=== PATIENT | male | born 1975 | race Caucasian/White ===

== ENCOUNTER 2016-10-06 10:42 | Inpatient (IN) | payer OTHER ==
[~2016-10-06] VITALS: Ht 177.8 cm; Wt 68.6 kg
[2016-10-06] VITALS (7 sets, daily range): BP systolic 119–164; BP diastolic 74–93; PULSE 70–85; RESP 14–22; O2SAT 97–100
--- NOTE | 2016-10-06 11:10 | ED.REPORT ---
HPI-Abd Pain M 40 and Over Date of Service Oct 06, 2016 ED Provider: History of Present Illness: 41-year-old male here for upper abdominal pain since 0 700 this morning. He woke up with this abdominal pain and has been constant since then on his right upper mid and left upper abdomen. He has no history of prior abdominal pain like this he usually gets lower abdominal pain and thinks he may have IBS but this is different than his chronic pain. He had pizza and shrimp for dinner last night and 4 beers. He drinks 4 beers almost daily. No recreational drug use although he does admit to taking his 's Vicodin periodically. Last was a few days ago. He denies nausea although he did not make himself vomit to help him feel better. There was no noted blood in his emesis. He took some fish oil to have a bowel movement this morning and he had a normal consistency bowel movement with no blood noted. He denies any urinary symptoms, he is passing gas. Denies any new sexual partners or penile discharge. The pain is severe and constant. Nursing Notes Stated Complaint: ABD PAIN Chief Complaint: Male Abdominal Pain Nursing Notes Reviewed: Yes Allergies: Coded Allergies: No Known Allergies (Unverified , 12/10/12) Scheduled PRN Ibuprofen (Ibuprofen) 200 Mg Capsule 200-600 MG PO QID PRN PRN For Pain Miscellaneous Medications Digestive Enzymes Combo No.7 (Superior Digestive Enzyme) 1 Each Capsule 1 EACH PO General Time Seen by MD: 11:04 Chief Complaint Abdominal pain Hx Obtained From: Patient Arrived By: Walk-in Sudden in Onset?: Yes Onset Occurred: 1 - 4 hours ago Context of Onset: Sleeping Symptom Duration: Constant Progression since Onset: Unchanged, Constant Location: : Abdomen upper: Epigastric: LUQ: RUQ Radiation: : Does not radiate Severity: Current: Severe Severity: Maximum: Severe Recent Healthcare: No recent doctor visit Similar Sx Previous: No Risk Factors Risk Notes: nonsmoker, takes unspecified amt of vicodin regularly Past Medical History Past Medical History multiple GI issues. IBS with intrmittent diarrhea and constipation Past Surgical History EGD/colonoscopy 2014 Smoking History Former Smoker Social History Alcohol Use: 3-5 per day Review of Systems Basic Review of Systems Eyes: Vision NL, No discharge ENT: Hearing NL, No pain, No nasal congestion, No pharyngeal pain Skin: No bruising, No rash, No itch Allergy / Immune: No allergy Neurologic: NL mental status, No weakness, No numbness Constitutional: Denies: Chills, Fatigue, Fever Respiratory: Denies: Dyspnea on exertion, Non-productive cough Cardiovascular: Denies: Chest pain, Edema GI: Reports: Abdominal pain, Denies: Bloody/tarry stool, Constipation, Diarrhea, Nausea, Vomiting Male: Denies Dysuria, Denies Penile discharge Musculoskeletal: Denies: Back pain Complete sys rev & neg: except as marked. Physical Exam Initial Vital Signs Vital Signs (First) Date Time Temp Pulse Resp B/P Pulse Ox O2 Delivery O2 Flow Rate FiO2 10/06/16 10:46 35.4 85 22 152/93 100 Room Air Initial VS: Reviewed, Vital signs normal Head / Eyes: Atraumatic, Normocephalic, PERRL ENT: Mucous membranes moist, Conjunctiva normal, No scleral icterus Neck: Supple, Non-tender, Full range of motion Extremities: Vascular intact, Neuro intact, No swelling, No tenderness Skin: Warm, Dry, No cyanosis Neurologic: Alert, Oriented, Nonfocal Psychiatric: Mood/affect normal, Behavior normal, Normal thought content General/Constitutional: Awake, Alert minor distress, slightly slurring words, guarding abd Respiratory / Chest: Breath sounds NL, Breath sounds = bilat, No respiratory distress, No rales, No rhonchi, No wheezing Cardiovascular: Heart rate NL, Regular rhythm, Heart sounds NL, Peripheral circulation NL Abdomen: Soft, McBurney's non-tender, BS normoactive, No distention, No hernia , No palpable mass, No pulsatile mass Tenderness/Guarding/Rebound: Positive: Guarding involuntary, Rebound diffuse, Tender LUQ... (Severe), Tender RUQ... (Severe), Tender epigastric Head / Eyes: Normocephalic, PERRL Skin: Color NL, Warm, Dry, Turgor NL Interpretation & Diagnostics Interpretation & Diagnostics: urine tox: benzos and cocaine Lab Results Interpretation Result Diagram: 10/06/16 1110 10/06/16 1110 Test 10/06/16 11:10 10/06/16 13:54 White Blood Count 10.7th/mm3 (3.8-10.1) Red Blood Count 5.60mil/mm3 (4.40-5.80) Hemoglobin 16.6g/dL (13.8-17.2) Hematocrit 46.5% (41.0-50.0) Mean Corpuscular Volume 83.0fL (81-100) Mean Corpuscular Hemoglobin 29.6pg (27.0-35.0) Mean Corpuscular Hemoglobin Concent 35.7% (32.0-37.0) Red Cell Distribution Width 13.1% (12.3-15.4) Platelet Count 316bil/L (150-400) Neutrophils (%) (Auto) 85.0% (40-74) Lymphocytes (%) (Auto) 6.2% (14-46) Monocytes (%) (Auto) 7.7% (4-12) Eosinophils (%) (Auto) 0.8% (0-5) Basophils (%) (Auto) 0.2% (0-3) Sodium Level 134mEq/L (134-144) Potassium Level 3.7mEq/L (3.5-5.2) Chloride Level 93mEq/L (97-108) Carbon Dioxide Level 19mmol/L (18-29) Blood Urea Nitrogen 14mg/dL (6-24) Creatinine 0.64mg/dL (0.76-1.27) Estimat Glomerular Filtration Rate 145mL/min (>59) Glucose Level 153mg/dL (60-99) Calcium Level 10.4mg/dL (8.5-10.1) Magnesium Level 1.9mg/dL (1.6-2.6) Total Bilirubin 1.3mg/dL (0.0-1.2) Aspartate Amino Transf (AST/SGOT) 38U/L (0-50) Alanine Aminotransferase (ALT/SGPT) 31U/L (0-44) Alkaline Phosphatase 93U/L (25-150) Troponin T 0.010ug/L (0.0-0.011) Total Protein 8.0g/dL (6.4-8.4) Albumin 4.8g/dL (3.4-5.0) Lipase 90U/L (13-60) Hold [place] Top Tube Received (Received) Hold Urine Received (Received) X-Ray Abdominal Interpretation PROCEDURE: X-RAY ACUTE ABDOMINAL SERIES ([id number]) INDICATIONS: abd pain TECHNIQUE: One view chest and two views of the abdomen were acquired. COMPARISON: None. FINDINGS: Surgical changes and devices: None. Chest: Lungs are clear. Heart size is normal. No pleural effusions. No pneumoperitoneum. Abdomen: Bowel gas pattern is abnormal at the midabdomen and left upper quadrant where scattered air-fluid levels can be in within small bowel loops. No subdiaphragmatic free air. No suspicious calcifications. Visualized solid organ contours appear normal. Bones: No suspicious bony lesions. IMPRESSION: Scattered small bowel gas-filled and mildly dilated loops at the midabdomen and left upper quadrant, with air-fluid levels. Focal ileus can produce such an appearance, but also early small bowel obstruction is a common cause for this appearance. Followup by CT scanning may be warranted at this time. Re-Eval/Medical Decision Med Decision/Clinical Course Patient states that he took 2 of his 's Vicodin over the past month. He does not do this chronically.. 1330- report to dr arraega, to assume care Care assumed, patient examined, chart reviewed On admitting the patient he splashed with a temperature to 38.4 so significant abdominal pain despite IV narcotics. He has moderate bowel tones is diffusely tender with mild peritoneal signs (significant tenderness with moving the bed around). CT scan is reviewed and there is no suggestion of intraperitoneal abscess or appendicitis. No significant colon inflammation or findings. Possibility of partial small bowel obstruction is entertained. Patient did have 3 bowel movements after taking a bowel stimulant this morning. Etiology for the severe abdominal pain and slightly elevated white count. No obvious source of infection at this point. Temperature spiking at this point. Lactate and blood cultures will be added to labs already obtained. We will continue with IV hydration Tylenol for the fever and additional narcotic pain medication for pain control. Because of the uncertainty in diagnosis at this point as well as the severity of pain we will admit for observation. They do not have a source for infection will not start antibiotics at this time. His lipase is slightly elevated however the CT scan does not suggest significant pancreatic inflammation. I do not suspect that this is severe pancreatitis and certainly the CT scan does not support his pancreas as the source of the severity of pain and noting on clinical exam Time of Eval: 14:10 )( Re-Eval Abdomen: Tenderness, Guarding, Bowel sounds Patient Status: Condition unchanged Re-Evaluation/Progress Note: uncertain diagnosis in setting of severe abdominal pain. Admit for further evaluation, observation and pain control. Consultation : Consulted With: Hospitalist Note: patient admitted to Dr Mandujano Discharge & Departure Primary Impression: Generalized abdominal pain Additional Impressions: Pancreatitis Ileus Disposition: ADMITTED TO HOSPITAL Vital Signs - All Vital Signs Date Time Temp Pulse Resp B/P Pulse Ox O2 Delivery O2 Flow Rate FiO2 10/06/16 14:52 38.1 70 14 164/84 100 Room Air 10/06/16 10:46 35.4 85 22 152/93 100 Room Air )( All Prior VS Reviewed: Yes Condition: Stable Referrals: Varghese Goldberg MD (PCP) copies to: Varghese Goldberg MD, Linnea K ARNP Oct 06, 2016 11:10 Natalya Arreaga MD Oct 06, 2016 14:42
[2016-10-06] MEDS ORDERED: 0.9% Sodium Chloride 1,000 ML IV ONE ×3 (11:12→13:47)
[2016-10-06] MEDS ORDERED: Pantoprazole 4 mg/mL 10 mL Inj IVPUSH ONE ×2 (11:15→13:50)
[2016-10-06] MEDS ORDERED: Ondansetron 2 mg/mL 2 mL Inj IVPUSH ONE ×2 (11:15→13:05)
[2016-10-06] MEDS ORDERED: LidocaineVisc 2%:Antacid 1:1 10 mL Syringe PO ONE (11:15)
[2016-10-06 11:28] LABS: BASOPHILS % (AUTO) 0.2 % (0-3); EOSINOPHILS % (AUTO) 0.8 % (0-5); MONOCYTES % (AUTO) 7.7 % (4-12); Mean Corpuscular Hemoglobin 29.6 pg (27.0-35.0); Platelet Count 316 bil/L (150-400)
[2016-10-06 11:41] LABS: TROPONIN T 0.01 ug/L (0.0-0.011)
[2016-10-06 11:53] LABS: Magnesium 1.9 mg/dL (1.6-2.6)
--- NOTE | 2016-10-06 11:54 | DRSVH ---
PROCEDURE: X-RAY ACUTE ABDOMINAL SERIES ([id number]) INDICATIONS: abd pain TECHNIQUE: One view chest and two views of the abdomen were acquired. COMPARISON: None. FINDINGS: Surgical changes and devices: None. Chest: Lungs are clear. Heart size is normal. No pleural effusions. No pneumoperitoneum. Abdomen: Bowel gas pattern is abnormal at the midabdomen and left upper quadrant where scattered air -fluid levels can be in within small bowel loops. No subdiaphragmatic free air. No suspicious calci fications. Visualized solid organ contours appear normal. Bones: No suspicious bony lesions. IMPRESSION: Scattered small bowel gas-filled and mildly dilated loops at the midabdomen and left upp er quadrant, with air-fluid levels. Focal ileus can produce such an appearance, but also early small bowel obstruction is a common cause for this appearance. Followup by CT scanning may be warranted a t this time. Dictated by: Velasquez Ferrera M.D. on 10/06/2016 at 11:51 Approved by: Velasquez Ferrera M.D. on 10/06/2016 at 11:52
[2016-10-06] MEDS ORDERED: HYDROmorphone 1 mg/mL Inj IVPUSH ONE ×3 (12:20→13:50)
--- NOTE | 2016-10-06 13:01 | DRSVH ---
PROCEDURE: CT ABDOMEN AND PELVIS WITH CONTRAST ([id number]) INDICATIONS: epigastric pain TECHNIQUE: After the administration of intravenous contrast, 5 mm thick sections acquired from the diaphragm to the symphysis. 5 mm coronal and sagittal reformats were acquired. For radiation dose reduction, the following was used: automated exposure control, adjustment of mA and/or kV according to patient siz e. COMPARISON: [facility], CR, XR ABD ACUTE SERIES 3VW, 10/06/2016, 11:27. FINDINGS: Image quality: Excellent. ABDOMEN: Lung bases: Lung bases are clear. Heart size is normal. Solid organs: Liver and spleen are normal in size and enhancement. There is a 1.5 x 1.8 cm peripher ally enhancing centrally lucent structure within the left lateral hepatic segment (image 26 of series 2) most consistent with hemangioma. Gallbladder appears normal. Biliary system is non dilated. Pa ncreas enhances normally. No adrenal nodules. Kidneys demonstrate normal size and enhancement, with out hydronephrosis. Peritoneum and bowel: Colonic bowel loops demonstrate normal wall thickness and caliber. There is a bnormal small bowel dilatation by fluid, over the upper and mid abdomen. At the right lower quadrant there is a transition between small bowel dilatation and relative collapse, which is not demarcated by a focus of mass intussusception or volvulus. No free fluid or air. Nodes and vessels: No retroperitoneal or mesenteric adenopathy by size criteria. Aorta and inferior vena cava are normal in size. Miscellaneous: No ventral hernias. PELVIS: Genitourinary: Bladder wall thickness is normal. Miscellaneous: No inguinal hernias or adenopathy. Bones: No suspicious bony lesions. No vertebral body compression fractures. IMPRESSION: A partial or early complete small bowel obstruction centered at the right lower quadrant appears present, etiology uncertain. Normal appearing colon, no mass or adenopathy seen. The dista l small bowel and colon appear relatively collapsed. Presumed hemangioma measuring up to 1.8 cm in dimension left lateral hepatic segment. If followup ul trasound is anticipated targeted sonographic assessment of this structure is recommended to further e stablish diagnosis of presumed hemangioma. Dictated by: Velasquez Ferrera M.D. on 10/06/2016 at 12:56 Approved by: Velasquez Ferrera M.D. on 10/06/2016 at 12:59
[2016-10-06] MEDS ORDERED: Ondansetron 2 mg/mL 2 mL Inj IVPUSH PRN (13:50)
--- NOTE | 2016-10-06 13:50 | DRSVH ---
PROCEDURE: US ABDOMEN ([id number]) INDICATIONS: epigstric pain TECHNIQUE: Real-time scanning was performed of the abdominal and retroperitoneal organs, with image documentatio n. COMPARISON: [facility], CT, CT ABD PELVIS W CON, 10/06/2016, 12:31. FINDINGS: Liver: Liver is normal in size and homogeneous in echotexture. Gallbladder: The gallbladder appears normal Biliary ducts: Intrahepatic bile ducts are non-dilated. Extrahepatic bile duct caliber measures 5-6 mm. Normal is 6-7 mm or less in diameter, or 10 mm or less post-cholecystectomy. Pancreas: Visualized portions of the pancreas are sonographically normal. Spleen: Spleen is normal in size and homogeneous in echotexture. Kidneys: Kidneys are normal in size and echotexture. Right kidney measures 13.0 cm long; left kidne y measures 12.7 cm long. No hydronephrosis or nephrolithiasis. No solid masses. Aorta: Visualized aorta is normal in caliber at less than 3 cm. Iliacs: Proximal common iliac arteries are normal in caliber at less than 2.5 cm. IVC: Intrahepatic inferior vena cava is patent. Miscellaneous: No free abdominal fluid. Multiple fluid-filled small bowel loops are present within the abdomen as seen also during CT scanning. IMPRESSION: Multiple fluid-filled small bowel loops within the abdomen, relatively hypo-motile. No free fluid was identified throughout the peritoneal space. The ultrasound was performed at approximately 12:00 10/06/[address] scan was performed jah roximately [address] scan has identified what likely is a hemangioma within the left lateral hepatic segment inferiorly, measuring up to approximately 2.2 cm, but not visualized by this ultrasound. If possible a brief supplemental repeat scan of that particular area of the liver added to this study would be helpful in determining if in fact a hemangioma is present. If that cannot be done at this time I would recommend obtaining a followup dedicated single organ ultrasound subsequen tly targeted to the left lateral hepatic segment to address this issue. Findings discussed with the ordering healthcare provider. Dictated by: Velasquez Ferrera M.D. on 10/06/2016 at 13:37 Approved by: Velasquez Ferrera M.D. on 10/06/2016 at 13:48
[2016-10-06] MEDS: HYDROmorphone 1 mg/mL Inj IVPUSH PRN ×4 (14:00→17:58)
[2016-10-06] MEDS ORDERED: DIGE1CAP PO (14:23)
[2016-10-06] MEDS ORDERED: IBUP200C PO (14:23)
[2016-10-06] MEDS ORDERED: D5 0.45% NaCl + KCl 20 mEq/L 1,000 ML IV SCH (14:53)
[2016-10-06] MEDS ORDERED: HYDROcodone-APAP 5-325 mg Tablet PO PRN (14:55)
[2016-10-06] MEDS ORDERED: Alum-Mag Hydrox-Simeth 30 mL Suspension PO PRN (14:55)
[2016-10-06] MEDS ORDERED: Polyethylene Glycol (PEG) 17 Gm Powder PO PRN (14:55)
--- NOTE | 2016-10-06 17:29 | NUR ---
Admission note Report received from ED RN. Patient arrived to room 3025 via stretcher. Pt oriented to room, use of call light. Policies and procedure explained. Pt verbalized understanding. Pt oriented to person, place and time. Vitals and assessment charted. Ongoing care.
[2016-10-06] MEDS: D5 0.9% NaCl + KCl 20 mEq/L 1,000 ML IV SCH (17:30)
--- NOTE | 2016-10-06 17:59 | PCM.HPMED ---
Subjective Date of Service Oct 06, 2016 Primary Provider: Admitting Physician: Michael Doss MD Primary Care Physician: Varghese Goldberg MD Attending Physician: Michael Doss MD Chief Complaint: Epigastric pain, nausea and vomiting History of Present Illness: 41-year-old male with a history of what he believes is irritable bowel syndrome has had issues with his gut but is eating all right and had bowel movements even this morning. He states he woke up around 3 in the morning to urinate and he still felt fine and then at 7 AM when he woke up he was having terrible epigastric pain. He had 3 bowel movements that seemed relatively normal for him at that time still did not relieve his symptoms. He came to the emergency room around 11 AM due to severe epigastric pain and nausea and vomiting that was ongoing. Review of Systems: Gen.: No fevers chills weight loss weight gain Eyes: no visual disturbances or blurring vision HEENT: No nose/throat drainage, no pain in ears or throat, no hearing loss Lymph: No lymph nodes noted Cardiac: No chest pain, orthopnea, PND, palpitations , pedal edema or dyspnea on exertion Pulmonary: no cough, wheezing or bringing up of sputum GI: blood or black in the stool epigastric pain, nausea and vomiting as described above : no dysuria hematuria urinary frequency or decrease in urine output Musculoskeletal: Joint swelling no joint pain no new muscle aches or back pain Neuro: No syncope, seizures no loss of consciousness no new focal weakness, numbness or tingling Psychiatric: New new anxiety insomnia or depression Endocrine: No new heat or cold intolerances polyuria or polydipsia Hematology: No lymphadenopathy or easy bleeding or bruising noted skin: No new rashes, stasis dermatitis Allergies Coded Allergies: No Known Allergies (Unverified , 12/10/12) Home Medications None PMH Patient has had EGD and colonoscopy by Dr. 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 No early cancer, diabetes, Crohn's disease or GI issues Social History Hx Alcohol Use: Yes Alcoholic Drinks Per Day: 2-6 beers a day approx 5-6 days a week Hx Substance Use: No Hx Tobacco Use: No Smoking Status: Former Smoker Exam Vital Signs Vital Sign - Last Date Time Temp Pulse Resp B/P Pulse Ox O2 Delivery O2 Flow Rate FiO2 10/06/16 16:47 36.9 73 18 120/74 97 Room Air Exam Gen.- A+ O 3 no apparent distress. Thin muscular male laying in bed just looks miserable and sick Eyes- open conjunctiva clear, pupils equal nonicteric Mouth- oral mucosa moist, no exudate ENT- ears normal, nose normal Neck- supple/trach midline CVS- RRR no murmur or gallop Lungs CTA GI- no bowel sounds, slightly distended, epigastric tenderness, no rebound or guarding Musc- moving 4 no obvious deformity Neuro- cranial nerves II through XII intact to gross examination, nonfocal Skin- warm and dry, no rashes/lesions/wounds noted Psych- pleasant and appropriate, Lab and Diagnostics Result Diagram: 10/06/16 1110 10/06/16 1110 X-Rays, CTs and MRIs US ABDOMEN : Velasquez Ferrera M.D. on 10/06/2016 at 13:48 IMPRESSION: Multiple fluid-filled small bowel loops within the abdomen, relatively hypo-motile. No free fluid was identified throughout the peritoneal space. The ultrasound was performed at approximately 12:00 10/06/[address] scan was performed approximately [address] scan has identified what likely is a hemangioma within the left lateral hepatic segment inferiorly, measuring up to approximately 2.2 cm, but not visualized by this ultrasound. If possible a brief supplemental repeat scan of that particular area of the liver added to this study would be helpful in determining if in fact a hemangioma is present. If that cannot be done at this time I would recommend obtaining a followup dedicated single organ ultrasound subsequently targeted to the left lateral hepatic segment to address this issue. Findings discussed with the ordering healthcare provider. Approved by: Velasquez Ferrera M.D. on 10/06/2016 at 13:48 CT ABDOMEN AND PELVIS WITH CONTRAST : Velasquez Ferrera M.D. on 10/06/2016 at 12: 59 personal/concurrently reviewed by myself Selam 10/06 IMPRESSION: A partial or early complete small bowel obstruction centered at the right lower quadrant appears present, etiology uncertain. Normal appearing colon, no mass or adenopathy seen. The distal small bowel and colon appear relatively collapsed. Approved by: Velasquez Ferrera M.D. on 10/06/2016 at 12:59 X-RAY ACUTE ABDOMINAL : Velasquez Ferrera M.D. on 10/06/2016 at 11:51 IMPRESSION: Scattered small bowel gas-filled and mildly dilated loops at the midabdomen and left upper quadrant, with air-fluid levels. Focal ileus can produce such an appearance, but also early small bowel obstruction is a common cause for this appearance. Followup by CT scanning may be warranted at this time. Dictated by: Velasquez Ferrera M.D. on 10/06/2016 at 11:51 12-lead ECG Sinus rhythm with a rate of 65, QTC 454 ms personally/concurrently reviewed by myself Selam 10/06 Assessment & Plan 41-year-old male with abrupt onset abdominal pain admitted 10/06 #Abdominal pain/nausea/vomiting-differential includes ileus and/or pancreatitis , patient has a history that sounds like it could be IBS versus undiagnosed Crohn's disease -Nothing by mouth, IV fluids -Treating with morphine/Zofran -If nausea and vomiting recurs I would place an NG tube for now we will not -If patient does not improve symptomatically we will consider GI consult in the next day or 2. #Prophylaxis- DVT with SCDs and enoxaparin, GI with pantoprazole IV #Disposition- patient is from home, he is a full code Michael Doss MD Oct 06, 2016 17:59
--- NOTE | 2016-10-06 18:44 | NUR ---
Pain Pt c/o of severe pain in upper abdomen, given PRN Dilaudid x 2, max dose, with no relief. 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 Pt denies N/V at this time, resting in room with call light within reach, bed low and locked, intentional rounding.
[2016-10-06] MEDS: HYDROmorphone PCA 0.2 mg/mL 30 mL Inj IV PRN (19:38)
[2016-10-06] MEDS: Famotidine Inj 20 MG in IV Premix 1 EACH IV SCH (21:28)
[2016-10-07] VITALS (11 sets, daily range): BP systolic 118–126; BP diastolic 79–84; PULSE 59–66; RESP 17–20; O2SAT 97–98
[2016-10-07] MEDS: D5 0.9% NaCl + KCl 20 mEq/L 1,000 ML IV SCH ×2 (03:41→14:05)
--- NOTE | 2016-10-07 06:46 | NUR ---
Pain: MOVIE EDITOR set up at the beginning of the shift. Pt reported abdominal pain with activity at about a 8/10, at rest 5/10. Only one bolus from the MOVIE EDITOR administered. Pt requested being woke about every 1 1/2-2 hours through the night to keep up on pain. Able to sleep between care. Taking only ice, no nausea.
[2016-10-07] MEDS: Famotidine Inj 20 MG in IV Premix 1 EACH IV SCH ×2 (08:58→21:05)
[2016-10-07] MEDS: HYDROmorphone PCA 0.2 mg/mL 30 mL Inj IV PRN (09:04)
[2016-10-07] MEDS: LidocaineVisc 2%:Antacid 1:1 10 mL Syringe PO SCH ×4 (10:39→21:06)
--- NOTE | 2016-10-07 16:06 | NUR ---
Social Work-screening: Data:EMR Reviewed. Pt is a 41 y/o male who was admitted on 10/06/16 for abdominal pain per H&P. Pt's insurance is [employer] and PCP is Varghese Goldberg MD. EMR Reviewed. Pt's readmission score is 0. SW met with pt to discuss discharge planning, SW role explained. Pt is alert and oriented x3. pt reside at home with and children where he remains independent with ADLs. Pt drives and does not use any DME. SW discussed DPOA/ advanced directive, pt states he has not completed this, SW provided pt with a copy. Per H&P, pt drinks 2-6 beers a day, SW to await MD orders for CD assessment, if indicated. Pt's family to provide transport home when medically stable. SW provided phone number and plan on white board in room. SW will continue to follow. Assessment:Pt who is independent at baseline. Plan:Pt to discharge home when medically stable via POV. SW to await MD orders for CD assessment if indicated. No other SW needs identified. SW will continue to follow if needs arise. OMAR Underwood
[2016-10-07] MEDS ORDERED: LidocaineVisc 2%:Antacid 1:1 10 mL Syringe PO SCH (17:35)
--- NOTE | 2016-10-07 17:38 | PCM.PNMED ---
Subjective Date of Service Oct 07, 2016 Subjective Pain is better, bowels move. No chest pain, no dyspnea, nausea and vomiting have resolved Exam Vital Signs Vital Sign - Last Date Time Temp Pulse Resp B/P Pulse Ox O2 Delivery O2 Flow Rate FiO2 10/07/16 16:58 18 98 10/07/16 13:28 36.5 66 118/80 Room Air Intake and Output 10/06/16 10/06/16 10/07/16 Cumulative From/Thru 15:00 23:00 07:00 10/06/16 10:46 - 10/07/16 06:40 Intake Total 3000 ml 0 ml 1343 ml 4343 ml Output Total 1250 ml 1250 ml Balance 3000 ml -1250 ml 1343 ml 3093 ml Intake Oral 0 ml 0 ml IV Total 3000 ml 1343 ml 4343 ml Output Urine Total 1250 ml 1250 ml # Voids 2 2 Exam Gen.- A+ O 3 no apparent distress. Thin muscular male moving about and doing pretty good Eyes- open conjunctiva clear, pupils equal nonicteric ENT- ears normal, nose normal Neck- supple/trach midline CVS- RRR no murmur or gallop Lungs CTA GI- NABS/only mildly tender no rebound or guarding markedly better than 10/06 Musc- moving 4 no obvious deformity Neuro- cranial nerves II through XII intact to gross examination, nonfocal Skin- warm and dry, no rashes/lesions/wounds noted Psych- pleasant and appropriate, Lab and Diagnostics Result Diagram: 10/06/16 1110 10/06/16 1110 X-Rays, CTs and MRIs US ABDOMEN : Velasquez Ferrera M.D. on 10/06/2016 at 13:48 IMPRESSION: Multiple fluid-filled small bowel loops within the abdomen, relatively hypo-motile. No free fluid was identified throughout the peritoneal space. The ultrasound was performed at approximately 12:00 10/06/[address] scan was performed approximately [address] scan has identified what likely is a hemangioma within the left lateral hepatic segment inferiorly, measuring up to approximately 2.2 cm, but not visualized by this ultrasound. If possible a brief supplemental repeat scan of that particular area of the liver added to this study would be helpful in determining if in fact a hemangioma is present. If that cannot be done at this time I would recommend obtaining a followup dedicated single organ ultrasound subsequently targeted to the left lateral hepatic segment to address this issue. Findings discussed with the ordering healthcare provider. Approved by: Velasquez Ferrera M.D. on 10/06/2016 at 13:48 CT ABDOMEN AND PELVIS WITH CONTRAST : Velasquez Ferrera M.D. on 10/06/2016 at 12: 59 personal/concurrently reviewed by myself Selam 10/06 IMPRESSION: A partial or early complete small bowel obstruction centered at the right lower quadrant appears present, etiology uncertain. Normal appearing colon, no mass or adenopathy seen. The distal small bowel and colon appear relatively collapsed. Approved by: Velasquez Ferrera M.D. on 10/06/2016 at 12:59 X-RAY ACUTE ABDOMINAL : Velasquez Ferrera M.D. on 10/06/2016 at 11:51 IMPRESSION: Scattered small bowel gas-filled and mildly dilated loops at the midabdomen and left upper quadrant, with air-fluid levels. Focal ileus can produce such an appearance, but also early small bowel obstruction is a common cause for this appearance. Followup by CT scanning may be warranted at this time. Dictated by: Velasquez Ferrera M.D. 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 hopefully can discharge 10/08. #Abdominal pain/nausea/vomiting-differential includes ileus and/or pancreatitis , patient has a history that sounds like it could be IBS versus undiagnosed Crohn's disease -Nothing by mouth, IV fluids -Treating with morphine/Zofran -If nausea and vomiting recurs I would place an NG tube for now we will not -If patient does not improve symptomatically we will consider GI consult in the next day or 2. #Prophylaxis- DVT with SCDs and enoxaparin, GI with pantoprazole IV #Disposition- patient is from home, he is a full code Michael Doss MD Oct 07, 2016 17:38
--- NOTE | 2016-10-07 18:30 | NUR ---
[employer] ATTENDANT Discontinued Patient transitioned to po pain medications and GI cocktail. Patient reporting pain 4-6/10 this shift, increasing with activity, especially walking or when attempting a bowel movement. Patient reported small amount of liquid stool x 2 this morning with increased pain.
[2016-10-08] MEDS: LidocaineVisc 2%:Antacid 1:1 10 mL Syringe PO SCH ×4 (00:58→12:24)
--- NOTE | 2016-10-08 04:22 | NUR ---
Pain/diet: Pt c/o abdominal pain x1 10/12; medication administered, effective. Pt also receiving scheduled GI cocktail which pt states he feels helps with his discomfort a lot. Pt tolerating current diet well. Denied SOB and chest pain, no nausea or emesis noted. Pt slept most of the night, pleasant and cooperative with care.
[2016-10-08 05:02] VITALS: BP 108/76; PULSE 62; RESP 20; O2SAT 98
[2016-10-08 06:23] LABS: BASOPHILS % (AUTO) 0.6 % (0-3); EOSINOPHILS % (AUTO) 4.2 % (0-5); MONOCYTES % (AUTO) 14.1 % (4-12); Mean Corpuscular Hemoglobin 29.5 pg (27.0-35.0); Mean Corpuscular Volume 88.9 fL (81-100); NEUTROPHILS % (AUTO) 54.4 % (40-74); Platelet Count 238 bil/L (150-400)
[2016-10-08] MEDS: Famotidine Inj 20 MG in IV Premix 1 EACH IV SCH (08:23)
[2016-10-08 13:44] VITALS: BP 112/73; PULSE 60; RESP 18; O2SAT 100
--- NOTE | 2016-10-08 14:18 | PCM.DIMED ---
Discharge Instructions Date of Service Oct 08, 2016 Dates of Hospitalization Oct 06, 2016 at 15:09 Discharge Diagnosis Discharge Diagnosis Abdominal pain, ileus uncertain etiology Diet Discharge Diet: No restrictions Activity Discharge Activity: No restrictions Patient Instructions Follow-up Provider: Varghese Goldberg MD Follow-up with PCP in: Other (call, asked for referral to manager semiconductor) Michael Doss MD Oct 08, 2016 14:18
[2016-10-08] MEDS ORDERED: OXYC5TAB72 PO (14:21)
[2016-10-08] MEDS ORDERED: OMEP40CA36 PO (14:21)
[2016-10-08] MEDS ORDERED: ONDA4TAB12 PO (14:21)
[2016-10-08] MEDS ORDERED: LIDO20SO PO (14:21)
--- NOTE | 2016-10-08 14:23 | NUR ---
Social Work-discharge: Data:EMR Reviewed. Pt is on day 2 of hospitalization for abdominal pain per H&P. Pt is medically stable for discharge. Pt resides at home with family and has been up independent in his room. did not place CD order for SW to see pt. No other SW needs identified. All updated and agreeable to plan. Assessment:Pt who is independent at baseline. Plan:Pt to discharge home today via POv. No other SW needs identified. All updated and agreeable to plan. OMAR Underwood
--- NOTE | 2016-10-08 14:29 | PCM.DC.MED ---
Discharge Summary Date of Service Oct 08, 2016 Dates of Hospitalization Date of Hospital Admission Oct 06, 2016 at 15:09 Date of Discharge: Oct 08, 2016 Providers: Admitting Physician: Michael Doss MD Primary Care Physician: Varghese Goldberg MD Attending Physician: Michael Doss MD Diagnosis at Time of Discharge Diagnosis at Time of Discharge Abdominal pain, ileus uncertain etiology Consultations None Procedures XRay, CTs & MRIs US ABDOMEN : Velasquez Ferrera M.D. on 10/06/2016 at 13:48 IMPRESSION: Multiple fluid-filled small bowel loops within the abdomen, relatively hypo-motile. No free fluid was identified throughout the peritoneal space. The ultrasound was performed at approximately 12:00 10/06/[address] scan was performed approximately [address] scan has identified what likely is a hemangioma within the left lateral hepatic segment inferiorly, measuring up to approximately 2.2 cm, but not visualized by this ultrasound. If possible a brief supplemental repeat scan of that particular area of the liver added to this study would be helpful in determining if in fact a hemangioma is present. If that cannot be done at this time I would recommend obtaining a followup dedicated single organ ultrasound subsequently targeted to the left lateral hepatic segment to address this issue. Findings discussed with the ordering healthcare provider. Approved by: Velasquez Ferrera M.D. on 10/06/2016 at 13:48 CT ABDOMEN AND PELVIS WITH CONTRAST : Velasquez Ferrera M.D. on 10/06/2016 at 12: 59 personal/concurrently reviewed by myself Selam 10/06 IMPRESSION: A partial or early complete small bowel obstruction centered at the right lower quadrant appears present, etiology uncertain. Normal appearing colon, no mass or adenopathy seen. The distal small bowel and colon appear relatively collapsed. Approved by: Velasquez Ferrera M.D. on 10/06/2016 at 12:59 X-RAY ACUTE ABDOMINAL : Velasquez Ferrera M.D. on 10/06/2016 at 11:51 IMPRESSION: Scattered small bowel gas-filled and mildly dilated loops at the midabdomen and left upper quadrant, with air-fluid levels. Focal ileus can produce such an appearance, but also early small bowel obstruction is a common cause for this appearance. Followup by CT scanning may be warranted at this time. Dictated by: Velasquez Ferrera M.D. on 10/06/2016 at 11:51 ECG 12 Lead Sinus rhythm with a rate of 65, QTC 454 ms personally/concurrently reviewed by myself Selam 10/06 Invasive Procedures Date of Service: Dec 11, 2012 Physician Zechariah Estrada MD Assistants: Indication for Procedure 37-year-old man who has had burning epigastric pain and cramping left upper quadrant and left lower quadrant pains, associated with nausea and occasional vomiting. He has lost 15 pounds unintentionally. He has also had intermittent bright red blood per rectum. Blood work was negative for any suggestion of inflammatory bowel disease. After discussion of risks and benefits, he agreed to proceed with esophagogastroduodenoscopy and colonoscopy. Pre Procedure Diagnosis: Epigastric pain, nausea and vomiting, hematochezia Post Procedure Dx & Findings: Small sliding hiatal hernia, 5 mm rectal polyp, moderate internal hemorrhoids, no evidence of inflammatory bowel disease Procedure Procedure: Procedural sedation was achieved. A procedural pause was performed. The gastroscope was introduced through the mouth and passed under direct visualization to the second portion of the duodenum. Biopsies were obtained from the duodenal bulb to evaluate for celiac disease. Biopsies were obtained from the gastric antrum for rapid H. pylori test. It was then withdrawn and retroflexed in the stomach, revealing a grade 1 esophagogastric flap valve. There was a small sliding hiatal hernia. It was then withdrawn and the esophagus was carefully inspected. Biopsies were obtained of the esophagogastric junction to rule out Cheung's. The gastroscope was then removed and the procedure was terminated. After digital rectal exam was performed the colonoscope was inserted and passed under direct visualization to the cecum where the appendiceal orifice and ileocecal valve were visualized. Despite multiple attempts, I was unable to intubate the terminal ileum. The scope was then carefully withdrawn and retroflexed in the rectum. Random biopsies were obtained from the right colon, transverse colon, and left colon to rule out microscopic colitis. A 5 mm sessile polyp was identified in the rectum at 12 cm, which was resected piecemeal with cold forceps. Retroflexion revealed moderate internal hemorrhoids. The procedure was then terminated. The patient tolerated the procedure well. Brief History 41-year-old male with a history of what he believes is irritable bowel syndrome has had issues with his gut but is eating all right and had bowel movements even this morning. He states he woke up around 3 in the morning to urinate and he still felt fine and then at 7 AM when he woke up he was having terrible epigastric pain. He had 3 bowel movements that seemed relatively normal for him at that time still did not relieve his symptoms. He came to the emergency room around 11 AM due to severe epigastric pain and nausea and vomiting that was ongoing. 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 hopefully can discharge 10/08. 10/08 patient had a large breakfast was having some abdominal pain that was resolved with oxycodone. We initially consult a GI doctor S[place] that the patient decided he wanted to go. In 2012 Dr. Estrada was unable to get into the terminal ileum to this possible patient is having inflammatory bowel disease , other etiology since it was epigastric suggest possibility of undiagnosed GERD /hypomotility syndrome. He has elevated blood sugars and consider checking A1c this patient may have diabetes and might benefit from Reglan particularly when he is having some episodes. Patient does need GI follow-up as this is not a new problem they may be able to treat/diagnosed him better. #Abdominal pain/nausea/vomiting-differential includes ileus and/or pancreatitis , patient has a history that sounds like it could be IBS versus undiagnosed Crohn's disease -Nothing by mouth, IV fluids -Treating with morphine/Zofran -If nausea and vomiting recurs I would place an NG tube for now we will not -If patient does not improve symptomatically we will consider GI consult in the next day or 2. #Prophylaxis- DVT with SCDs and enoxaparin, GI with pantoprazole IV #Disposition- patient is from home, he is a full code Exam Vital Signs (Last) Date Time Temp Pulse Resp B/P Pulse Ox O2 Delivery O2 Flow Rate FiO2 10/08/16 13:44 36.8 60 18 112/73 100 Room Air Exam Gen.- A+ O 3 no apparent distress. Thin muscular male moving about and doing pretty good Eyes- open conjunctiva clear, pupils equal nonicteric ENT- ears normal, nose normal Neck- supple/trach midline CVS- RRR no murmur or gallop Lungs CTA GI- NABS/only mildly tender no rebound or guarding markedly better than 10/06 Musc- moving 4 no obvious deformity Neuro- cranial nerves II through XII intact to gross examination, nonfocal Skin- warm and dry, no rashes/lesions/wounds noted Psych- pleasant and appropriate, Test 10/06/16 11:10 10/06/16 13:54 10/06/16 23:10 10/08/16 05:50 Magnesium Level 1.9mg/dL (1.6-2.6) Troponin T 0.010ug/L (0.0-0.011) Lipase 90U/L (13-60) Hold [place] Tube Received (Received) Hold Urine Received (Received) Lactic Acid Level 0.6mmol/L (0.4-2.0) White Blood Count 5.1th/mm3 (3.8-10.1) Red Blood Count 4.58mil/mm3 (4.40-5.80) Hemoglobin 13.5g/dL (13.8-17.2) Hematocrit 40.7% (41.0-50.0) Mean Corpuscular Volume 88.9fL (81-100) Mean Corpuscular Hemoglobin 29.5pg (27.0-35.0) Mean Corpuscular Hemoglobin Concent 33.2% (32.0-37.0) Red Cell Distribution Width 13.0% (12.3-15.4) Platelet Count 238bil/L (150-400) Neutrophils (%) (Auto) 54.4% (40-74) Lymphocytes (%) (Auto) 26.5% (14-46) Monocytes (%) (Auto) 14.1% (4-12) Eosinophils (%) (Auto) 4.2% (0-5) Basophils (%) (Auto) 0.6% (0-3) Sodium Level 141mEq/L (134-144) Potassium Level 4.5mEq/L (3.5-5.2) Chloride Level 105mEq/L (97-108) Carbon Dioxide Level 24mmol/L (18-29) Blood Urea Nitrogen 6mg/dL (6-24) Creatinine 0.62mg/dL (0.76-1.27) Estimat Glomerular Filtration Rate 150mL/min (>59) Glucose Level 120mg/dL (60-99) Calcium Level 9.3mg/dL (8.5-10.1) Total Bilirubin 0.4mg/dL (0.0-1.2) Aspartate Amino Transf (AST/SGOT) 21U/L (0-50) Alanine Aminotransferase (ALT/SGPT) 18U/L (0-44) Alkaline Phosphatase 68U/L (25-150) Total Protein 5.8g/dL (6.4-8.4) Albumin 3.6g/dL (3.4-5.0) Pathology from EGD/colonoscopy [place] December 2012 FINAL DIAGNOSIS: 1). Duodenum, biopsy: Fragment of gastric mucosa with no specific diagnostic abnormalities. No duodenal mucosa identified, see comment. 2). Distal esophagus, biopsy: Fragment of small intestinal mucosa with no specific diagnostic abnormalities, negative for villus atrophy, increased intraepithelial lymphocytes and malignancy. 3). Right colon biopsy: Fragment of colonic mucosa with no specific diagnostic abnormalities. 4). Transverse colon biopsy: Fragment of colonic mucosa with no specific diagnostic abnormalities. 5). Left colon biopsy: Fragments of colonic mucosa with no specific diagnostic abnormalities. 6). Rectal polyp: Fragments of hyperplastic polyp, negative for malignancy. 12/14/2012 [facility] Microbiology Results Blood cultures from 10/06 still negative at time of discharge Discharge Medications Discharge Medications Lidocaine HCl (Lidocaine HCl Viscous) 20 Mg/1 Ml Solution 10 ML PO DIRECTED Prescribed by: MICHAEL DOSS MD Omeprazole (Omeprazole) 40 Mg Capsule.dr 40 MG PO DAILY Prescribed by: MICHAEL DOSS MD As needed Ondansetron ODT (Ondansetron ODT) 4 Mg Tab.rapdis 4-8 MG PO Q4H PRN PRN For Nausea/Vomiting Prescribed by: MICHAEL DOSS MD oxyCODONE (oxyCODONE) 5 Mg Tablet 5-20 MG PO Q3 PRN PRN MOD-severe pain Prescribed by: MICHAEL DOSS MD Miscellaneous Medications Digestive Enzymes Combo No.7 (Superior Digestive Enzyme) 1 Each Capsule 1 EACH PO (Reported) Followup Plan Disposition: To home Follow-up plan Patient can call PCP however think the major issue is going to be a GI follow- up consult. Consider A1c to evaluate for diabetes patient was hyperglycemic while he was here Discharge Diet: No restrictions Discharge Activity: No restrictions Follow-up Provider: Varghese Goldberg MD Follow-up with PCP in: Other (call, asked for referral to tube winder) Time spent Greater than 30 minutes Attending Statement Patient can call PCP however think the major issue is going to be a GI follow- up consult. Consider A1c to evaluate for diabetes patient was hyperglycemic while he was here copies to: Varghese Goldberg MD, Andris E MD Oct 08, 2016 14:29
--- NOTE | 2016-10-08 14:48 | NUR ---
Discharge Patient given discharge orders. Patient given medication list written times when next dose is due. Patient IV removed fully intact and asymptomatic. Patient given informational packets. Patient given follow up instruction. Patient given hard copies of prescriptions. Family came to pick patient up upon discharge.
== END 2016-10-08 15:00 | disposition home or self-care (01) | DRG 390 ==
LOC: SED 10:42 → OBSVTOIN 15:09 → MPC 15:09
PROVIDERS: ADMIT Hospitalist; ATTEND Hospitalist
DX: K56.7 Ileus, unspecified (principal); Z87.891 Personal history of nicotine dependence

== ENCOUNTER 2016-11-04 09:53 | Day surgery (SDC) | payer OTHER ==
[~2016-11-04] VITALS: Ht 177.8 cm; Wt 68.0 kg
[~2016-11-04 09:53] MED LIST: LIDO20SO PO; OMEP40CA36 PO; OXYC5TAB72 PO
[2016-11-04 10:26] VITALS: BP 114/78; PULSE 68; RESP 16; O2SAT 99
[2016-11-04] MEDS ORDERED: 0.9% Sodium Chloride 1,000 ML IV PRN (10:57)
[2016-11-04] MEDS ORDERED: fentaNYL-PF 50 mCg/mL 2 mL Inj IVPUSH PRN (11:00)
[2016-11-04] MEDS ORDERED: Sodium Chloride LOK Flush 10 mL Syringe IV PRN (11:00)
--- NOTE | 2016-11-04 11:25 | PCM.ENDEGD ---
EGD Date of Service: Nov 04, 2016 Physician Mark Johnson MD Pre Procedure Diagnosis: Abdominal pain Post Procedure Dx & Findings: Gastritis, duodenal erosions food in the stomach Procedure Esophagogastroduodenoscopy PROCEDURE IN DETAIL: After proper sedation, Olympus video endoscope was inserted into patient's mouth and esophagus was successfully intubated. Scope introduced esophagus. Esophagus showed normal shiny whitish mucosa consistent with squamous cell component. Z line was intact at 40 cm from the incisors. Scope further advanced to the stomach. The stomach had quite a bit of food. Of course the distention of the stomach was done gently. The antrum showed atrophy redness and edema consistent with gastritis. Biopsy were done.. Cardia fundus body antrum pylorus were all visualized. Retroflexion was done. Stomach was easily inflated and deflatable using air. Scope further advanced to the distal duodenum. Duodenum revealed several small erosions in the bulb and the first pass. Sampling biopsies obtained. Scope further events to the distal part of the duodenum. Impression Food in the stomach suspect gastroparesis Gastritis Duodenal erosions Recommendation Await biopsy PPI Stop all NSAIDs Gastric emptying study. Follow up in GI clinic Presedation Assessment Risks and Benefits Informed consent was obtained from the patient after all risks and benefits including but not limited to drug reaction, infection, pain, bleeding, perforation, as well as alternatives were discussed. Patient monitoring Continuous pulse oximetry, cardiac monitoring, blood pressure monitoring, IV access, and oxygen at 2L per nasal cannula. Periprocedural Fentanyl: Fentanyl 150mcg Incrementally Midazolam: Midazolam 7mg Incrementally Complications There were no periprocedural complications identified. Post Procedure Plan Post Procedure Recommendations 1. Restrict activities today. 2. Resume normal activities in the morning. 3. Resume medications. 4. GERD behavioral modification: - Avoid fatty, acidic, spicy, large meals - Do not lie down after meals - Do not eat or drink anything for at least 2 1/2 hours before going to bed at night - Discontinue tobacco and alcohol - Decrease or avoid caffeine - Avoid chocolate and mints - Decrease weight - Avoid aspirin and non steroidal anti-inflammatory agents (NSAID) such as Aleve, Advil, Mobic, Naproxen, Ibuprofen, etc 5. Add proton pump inhibitor. Take 30 minutes before 1st meal of the day. 6. Patient informed of normal post procedure side effects as bloating, drowsiness, blood streaking in the stool 7. If gastric biopsy reveal H.pylori, continue with appropriate treatment 8. If small bowel biopsy reveals celiac, continue with appropriate treatment 9. Please don't hesitate to call me with any questions Mark Johsnon MD Nov 04, 2016 11:25
[2016-11-04 11:32] VITALS: BP 114/77; PULSE 81; RESP 16; O2SAT 98
[2016-11-04 11:40] VITALS: BP 116/81; PULSE 71; RESP 16; O2SAT 97
[2016-11-04 11:50] VITALS: BP 118/78; PULSE 73; RESP 16; O2SAT 99
[2016-11-04 12:00] VITALS: BP 112/75; PULSE 69; RESP 16; O2SAT 98
--- NOTE | 2016-11-06 16:32 | PATH ---
SURGICAL PATHOLOGY Attending Physician:Mark Johnson M.D. CASE STATUS: Signed Out PATIENT NAME: EUSEBIO LANGLEY PID: [id number] : 1975 DATE COLLECTED:11/04/2016 20:53 SPECIMEN: 1: Duodenum, Biopsy 2: Gastric, Biopsy CLINICAL HISTORY: 1). DUODENUM BIOPSY 2). GASTRIC BIOPSY FINAL DIAGNOSIS: 1. Duodenum, Biopsy: Duodenal mucosa with active inflammation, non-specific. Negative for active inflammation, features of sprue, dysplasia, and malignancy. 2. Gastric Biopsy: Portions of gastric antral and body-type mucosa with mild chronic gastritis. No definite H. pylori organisms identified by H&E stain. Immunohistochemistry studies pending; results will be reported as an addendum. Negative for intestinal metaplasia, dysplasia, and malignancy. ICD10: K29.7 GROSS DESCRIPTION: 1. Received in formalin, labeled with the patient's name and "duodenum BX" are two fragments of payton soft tissue ranging in size from less than 0.1 by less than 0.1 by less than 0.1 cm to 0.2 x 0.1 x 0.1. cm. All fragments are totally submitted in cassette 1A. 2. Received in formalin, labeled with the patient's name and "gastric BX" are two fragments of payton soft tissue ranging in size from 0.1 x 0.1 x 0.1 cm to 0.2 x 0.1 x 0.1 cm. All fragments are totally submitted in cassette 2A. ([id number]) ICD-9 CODES: CPT CODES: 1: 93325 2: 20047, 54302 PROCEDURE/ADDENDA: Addendum SPI Addendum Diagnosis IMMUNOHISTOCHEMISTRY: 2. Gastric Biopsy: Negative for H. pylori organisms by immunohistochemistry studies. Addendum Comment * This test was developed and its performance characteristics determined by [facility]. It has not been cleared or approved by the U.S. Food and Drug Administration. The FDA has determined that such clearance or approval is not necessary. This test is used for clinical purposes. It should not be regarded as investigational or for research. Electronically Signed Out Jasmin Powell MD Electronically Signed Out Jasmin Powell MD [facility] [address] [place] [address] Division, [place] [address] Technical component performed at [facility], [address], [place], [address]
== END 2016-11-04 23:59 | disposition home or self-care (01) ==
LOC: END 09:53
PROVIDERS: ATTEND Internal Medicine
DX: K29.50 Unspecified chronic gastritis without bleeding (principal); K26.9 Duodenal ulcer, unspecified as acute or chronic, without hemorrhage or perforation; K85.90 Acute pancreatitis without necrosis or infection, unspecified
CPT/HCPCS: 43239; G0500; J2250; J3010; J7030